=== PATIENT | female | born 1975 | race Caucasian/White ===

== ENCOUNTER 2020-04-19 15:21 | Outpatient (CLI) | payer OTHER, SELFPAY ==
--- NOTE | 2020-04-19 15:24 | ECG_ITS ---
Measurements Intervals [place] Rate: 84 P: 63 ME: 176 QRS: 18 QRSD: 120 T: 26 QT: 345 QTc: 409 Interpretive Statements SINUS RHYTHM INTRAVENTRICULAR CONDUCTION DELAY BORDERLINE ECG Electronically Signed On 04-19-2020 16:06:01 VEHICLE TECHNICIAN by Eliseo Glover D.O.
== END 2020-04-19 15:22 | disposition home or self-care (01) ==
PROVIDERS: PCP Family Medicine Sports Medicine; Visit Provider Surgery
DX: Z01.818 Encounter for other preprocedural examination (principal); Z87.891 Personal history of nicotine dependence
CPT/HCPCS: 93005

== ENCOUNTER 2020-04-21 00:42 | Outpatient (CLI) | payer OTHER, SELFPAY ==
[2020-04-21 18:38] LABS: SARS-CoV-2 RNA PCR Negative
== END 2020-04-21 00:43 | disposition home or self-care (01) ==
LOC: ANHCOVIDDT 00:42
PROVIDERS: PCP Family Medicine Sports Medicine; Visit Provider Surgery
DX: Z01.818 Encounter for other preprocedural examination (principal); Z20.828 Contact with and (suspected) exposure to other viral communicable diseases
CPT/HCPCS: C9803; U0003

== ENCOUNTER 2020-04-24 01:57 | Day surgery (SDC) | payer OTHER, SELFPAY ==
[2020-04-19 09:38] VITALS: BMI 27.1
[2020-04-24 10:12] VITALS: BP 122/66; PULSE 81; RESP 16; TEMP 36.9; O2SAT 100
--- NOTE | 2020-04-24 10:43 | WPDANESEPPF ---
Anes - Initial Pre Proc Eval Procedure: Operation Date: 04/24/20 12:30 Proposed Procedures p Excision Right Back Mass, Excision Left Thigh Mass - Alee Palmer MD Date/Time: 04/24/20 10:43 Surgeon: Alee Palmer MD Pre Op Diagnosis: Subq massXtwo, left thigh and right back Patient Data Age: 45 Gender: F Height: 1.6 m Weight: 69.85 kg Last Vital Signs Temp 36.9 C 04/24/20 10:12 Pulse 81 04/24/20 10:12 Resp 16 04/24/20 10:12 BP 122/66 04/24/20 10:12 Pulse Ox 100 04/24/20 10:12 Allergies Allergy/AdvReac Type Severity Reaction Status Date / Time sumatriptan [From Imitrex] Allergy Unknown Dyspnea / Verified 04/24/20 10:26 SOB hydrocodone [From Vicodin] Allergy Hives Verified 04/24/20 10:27 Home Medications Medication Instructions Recorded Confirmed Type duloxetine 20 mg capsule,delayed 60 mg PO QAM 04/12/20 04/19/20 History release esomeprazole magnesium 20 mg 40 mg PO DAILY 04/12/20 04/19/20 History capsule,delayed release gabapentin 300 mg capsule 1,200 mg PO BID 04/12/20 04/19/20 History modafinil 100 mg tablet 100 mg PO BID 04/12/20 04/19/20 History rizatriptan 10 mg tablet 10 mg PO PRN PRN 04/12/20 04/19/20 History ascorbic acid (vitamin C) 1 g PO DAILY 04/19/20 04/19/20 History Patient hx anesthesia problems: post op nausea/vomiting Family hx anesthesia problems: none PMFSH Past Medical History Medical History (Updated 04/20/20 @ 08:12 by Long Kwong DO) Anxiety GERD (gastroesophageal reflux disease) High cholesterol Hypoglycemia IBS (irritable bowel syndrome) CHARLIE (obstructive sleep apnea) CPAP Surgical History Surgical History H/O wrist surgery History of breast surgery History of cholecystectomy History of elbow surgery History of eye surgery History of shoulder surgery History of sinus surgery Family History Family History Unknown Breast cancer Carcinoma of colon Diabetes mellitus Grandparent Acute myocardial infarction Social History Social History Smoking packs per day: 1 Smoking cigarettes per day: 20.0 Years smoked: 23 Smoking pack-years: 23.00 Smoking status: Former smoker Tobacco type: cigarettes Smoking end date: 04/21/11 Alcohol intake: current Drinks per week: 1 Living arrangements: with family 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 Questions were solicited and answers provided to the satisfaction of the patient/family/POA.
[2020-04-24] MEDS: LACTATED RINGERS 1,000 ML 30 ML IV CONT ×2 (11:15→13:12)
--- NOTE | 2020-04-24 12:02 | WPDHPUPDATE1 ---
History and Physical Update Update Date/Time: 04/24/20 12:02 History and Physical has been reviewed, including an updated exam of the patient. There are NO changes in the patient's condition. Risks, benefits, and alternatives have been discussed and questions answered. Patient agrees to proceed with procedure.
[2020-04-24] MEDS: ceFAZolin 2 GM/D5W 50 ML 2 GM/50 ML BAG IVPB (12:18)
[2020-04-24] MEDS: LIDO 1%/EPINEPHRINE 1:100,000 50 ML VIAL INFILTRATE (12:29)
[2020-04-24 12:50] VITALS: BP 119/57; PULSE 115; RESP 12; O2SAT 98
--- NOTE | 2020-04-24 13:06 | PM.PROC ---
Procedure Note - Detailed Date of procedure: 04/24/20 Pre-op diagnosis: Subq massXtwo, left thigh and right back Post-op diagnosis: same Procedure performed: excisional biopsy subcutaneous mass on R middle back and L lower lateral thigh Description of procedure: The patient was taken to the operating room and placed in the supine position. After adequate induction of mac anesthesia the patient was prepped and draped in the normal sterile fashion. A time-out was then done to verify the patient's identity, as well as procedure being performed. I began by localizing the area over both masses. I then made an incision over the mass in the right middle back. This carried through the dermis and into the subcutaneous tissue. The mass was noted to be located underneath the fascial layer, however not into the muscle. Was able to excise this mass in full. 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 The dimensions of this mass approximately 3 by 3 cm. Once removed it was sent to pathology for further review. I then copiously irrigated the cavity and further localized the area. Then closed the subcutaneous tissue with 3 0 Vicryl suture and the skin was closed with 4 O Monocryl subcuticular suture. Dermabond was then placed on the wound. I then made an incision over the area in the left lower lateral thigh. Again the incision was carried through the dermis into the subcutaneous tissue. This mass was noted to be more cystic in nature and measured approximately 2 x 2 cm. It was excised in full and sent to pathology for further review. I again copiously irrigated the cavity and further localized the area. I closed this with 4 Monocryl subcuticular suture and again Dermabond was placed on the wound. The patient tolerated these procedures well and was alert and awake in the operating room postoperatively. She will be sent to the recovery room in stable condition. Anesthesia: MAC and local Surgeon: Alee Palmer MD Estimated blood loss (mL): 5 Drains: No Packing: No Pathology: yes Complications: No immediate complications Condition: stable Disposition: PACU Findings: right mid back mass and left lateral thigh mass
[2020-04-24 13:20] VITALS: BP 111/65; PULSE 102; RESP 14
== END 2020-04-24 13:52 | disposition home or self-care (01) ==
PROVIDERS: PCP Family Medicine Sports Medicine; Visit Provider Surgery
PROC: (CPT 27337; principal; 2020-04-24 12:00)
DX: D17.1 Benign lipomatous neoplasm of skin and subcutaneous tissue of trunk (principal); D17.24 Benign lipomatous neoplasm of skin and subcutaneous tissue of left leg; E78.00 Pure hypercholesterolemia, unspecified; G47.33 Obstructive sleep apnea (adult) (pediatric); K21.9 Gastro-esophageal reflux disease without esophagitis; F41.9 Anxiety disorder, unspecified; K58.9 Irritable bowel syndrome, unspecified; Z87.891 Personal history of nicotine dependence
CPT/HCPCS: 27337; 21931; 88304; 93005; C9803; J0690; J1100; J2250; J2370; J2405; J2704; J3010; J7120; U0003

== ENCOUNTER 2021-07-10 00:09 | Day surgery (SDC) | payer OTHER, SELFPAY ==
[2021-07-02 13:25] VITALS: BMI 27.3
--- NOTE | 2021-07-02 13:31 | PC.NURSE ---
Report to the Outpatient Waiting Room, entrance under the green pavilion located off [facility], at time _0900__ on date 07/10/21__. OR Time: ____1100__. - You and your visitor will be asked a series of questions to screen for COVID 19 for your protection. - A mask is required within the hospital. Preoperative COVID Testing Requirements: No COVID Test needed if: (proof is required; if not received patient will have Rapid Test prior to entry) - Patient has received COVID Vaccine at least 14 days prior to procedure date or - Patient has positive COVID test result within last 90 days of surgery date. COVID Test needed if above criteria is not met If not COVID vaccinated a COVID test must be conducted within 72 hours of surgery and patient is asked to isolate self from time of testing until procedure. You will go to the [facility] for your COVID testing. The [facility] is located at the corner of [address] [facility]. You will only be called if COVID results are positive and your surgeon may reschedule your elective surgery date. Patients may have clear liquids (water, carbonated beverages, clear teas, apple juice) until 3 hours prior to surgery with a maximum of 20 ounces. - No food from midnight until time of surgery - Infants may have breast milk until 4 hours before surgery, formula 6 hours prior to surgery. - Children will be allowed to drink immediately following surgery. If applicable, please bring a bottle or sippy cup to assist with drinking. Juice, water, soda, and popsicles are readily available. For infants on formula, please bring formula the day of surgery. Pacifiers are allowed. Take the following medications with a SIP of water the morning of surgery: ____DULOXETINE,ESCITALOPRAM,GABAPENTINE, NEXIUM, METHYLPHENIDATE_ Medications to discontinue per physician ____NONE Date to take last dose N/A Please no make-up, nail tajik, hairspray, perfume, deodorant, or body powder the day of surgery. No jewelry (including any body piercings) or valuables the day of surgery, leave them at home. Please take a shower or bath the night before, or the morning of, surgery with an antibacterial soap. Wear comfortable, loose fitting clothing. Children are encouraged to wear pajamas. - Jewelry must be removed prior to entering the operating room. Rings and piercings that are not removed may be cut off. - The hospital will not accept responsibility for valuables. - Please leave all valuables, including medications, at home the day of surgery. If you are going home after surgery, a licensed bus driver/monitor must drive you home. - NO public transportation without another adult. - We recommend that an adult stay with you for 24 hours following discharge. - We also recommend that you do not drive, make important decision, drink alcoholic beverages, or take any drugs that were not prescribed by your health care provider for at least 24 hours after your discharge time. For Pediatric surgeries, we recommend two adults accompany the child home (only one inside the building at this time). One visitor will be allowed to accompany the patient into the hospital. Patients visitor will be instructed to remain with patient at all times or leave the building. We will allow the visitor to come back to the postoperative area when patient is ready. Follow any additional instructions given to you from your surgeon. Telephone instructions given to _PATIENT__and asked if any additional questions and then verbalized understanding. Patient advised to call surgeon office or pre surgery nurse liaison [phone] if any additional questions.
--- NOTE | 2021-07-09 15:27 | WPDANESEPPF ---
Anes - Initial Pre Proc Eval Procedure: Operation Date: 07/10/21 11:00 Proposed Procedures p Hysteroscopy with Intrauterine Device Removal - Sravanthi Topete MD Date/Time: 07/09/21 15:27 Surgeon: Sravanthi Topete MD Pre Op Diagnosis: removal of iud Patient Data Age: 46 Gender: F Height: 1.6 m Weight: 70 kg Allergies Allergy/AdvReac Type Severity Reaction Status Date / Time hydrocodone [From Vicodin] Allergy Severe Hives Verified 07/10/21 09:19 sumatriptan [From Imitrex] Allergy Severe Dyspnea / Verified 07/10/21 09:19 SOB Home Medications Medication Instructions Recorded Confirmed Type duloxetine 20 mg capsule,delayed 60 mg PO QAM 04/12/20 07/10/21 History release esomeprazole magnesium 20 mg 40 mg PO DAILY 04/12/20 07/10/21 History capsule,delayed release gabapentin 300 mg capsule 1,200 mg PO BID 04/12/20 07/10/21 History modafinil 100 mg tablet 100 mg PO BID 04/12/20 07/10/21 History rizatriptan 10 mg tablet 10 mg PO PRN PRN 04/12/20 07/02/21 History ascorbic acid (vitamin C) 1 g PO DAILY 04/19/20 07/02/21 History escitalopram oxalate 20 mg PO HS 07/02/21 07/10/21 History methylphenidate HCl 10 mg PO DAILY 07/02/21 07/10/21 History methylphenidate HCl 20 mg PO DIRECTED 07/02/21 07/10/21 History triamcinolone acetonide 1 applic TOPICAL 07/02/21 History Patient hx anesthesia problems: post op nausea/vomiting Family hx anesthesia problems: none Results Review: All pre-operative results and documents have been reviewed as part of the pre-operative evaluation. [facility] Past Medical History Medical History Anxiety GERD (gastroesophageal reflux disease) High cholesterol Hypoglycemia IBS (irritable bowel syndrome) CHARLIE (obstructive sleep apnea) CPAP Surgical History Surgical History H/O excision of mass lipoma removal from mid back H/O wrist surgery History of breast surgery History of cholecystectomy History of elbow surgery History of eye surgery History of shoulder surgery History of sinus surgery Family History Family History Unknown Breast cancer Carcinoma of colon Diabetes mellitus Grandparent Acute myocardial infarction Social History Social History Smoking packs per day: 1.5 Smoking cigarettes per day: 30.0 Years smoked: 24 Smoking pack-years: 36.00 Smoking status: Former smoker Tobacco type: cigarettes Smoking end date: 04/21/11 Additional smoking assessment comments: STOPPED IN 2014 Alcohol intake: current Drinks per week: 2 Alcohol use details: social Living arrangements: with family 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 Informed Consent: The patient's anesthetic plan and its attendant risks and benefits were discussed with the patient/family/POA. Questions were solicited and answers provided to the satisfaction of the patient/family/POA.
[2021-07-10] MEDS: ACETAMINOPHEN 500 MG TABLET 1000 MG PO (09:34)
[2021-07-10] MEDS: LACTATED RINGERS 1,000 ML 30 ML IV CONT (09:47)
[2021-07-10 09:49] VITALS: BP 125/73; PULSE 80; RESP 16; TEMP 37.1; O2SAT 100
--- NOTE | 2021-07-10 09:55 | PM.IMHP ---
H&P: HPI History of Present Illness Date/Time: 07/10/21 09:55 This patient is 46-year-old female with malpositioned IUD. We have agreed to perform hysteroscopic IUD removal and replacement. She understands the surgery as risk. She understands that injuries may occur that result in hospitalization, more surgery, and severe illness. She has completed the informed consent process. She understands the risk of hemorrhage and infection. She denies any nausea, vomiting, fever, chills. She denies any chest pain or shortness of breath. Chief Complaint: Malpositioned IUD Review of Systems Review of Systems: All systems reviewed & are unremarkable except as noted in HPI and below Constitutional: Constitutional: Denies chills, Denies fatigue, Denies fever(s) and Denies weakness Eyes: Eyes: Denies blurry vision, Denies change in vision, Denies loss of peripheral vision, Denies loss of vision, Denies other visual disturbances and Denies eye pain ENT: Denies vertigo, Denies dizziness, Denies hearing loss, Denies mouth pain, Denies nasal obstruction, Denies neck mass and Denies neck pain Cardiovascular: Cardiovascular: Denies chest pain, Denies diaphoresis, Denies syncope, Denies leg edema and Denies dyspnea Respiratory: Respiratory: Denies chest congestion, Denies cough, Denies hemoptysis, Denies dyspnea and Denies wheezing Gastrointestinal: Gastrointestinal: Denies abdominal pain, Denies constipation, Denies diarrhea, Denies nausea and Denies vomiting Genitourinary: Genitourinary: Denies hematuria, Denies change in libido, Denies nocturia, Denies genital lesions, Denies flank pain and Denies urinary urgency Musculoskeletal: Musculoskeletal: Denies abnormal gait, Denies back pain, Denies myalgias, Denies arthralgias, Denies joint swelling, Denies muscle weakness and Denies neck pain Integumentary/Breasts: Skin/Breast: Denies swelling, Denies breast pain, Denies breast mass, Denies dry skin, Denies nipple discharge, Denies unusual bruising and Denies jaundice Neurologic: Denies Neuro-related abnormal movements, Denies Abnormal speech present, Denies abnormal gait, Denies behavioral changes, Denies confusion, Denies vertigo, Denies dizziness, Denies syncope, Denies loss of vision, Denies memory loss, Denies convulsions and Denies weakness Psychiatric: Psychiatric: Denies abnormal sleep pattern, Denies behavioral changes, Denies change in libido, Denies confusion, Denies depression, Denies anhedonia and Denies memory loss Endocrine: Endocrine: Reports no additional endocrine complaints, Denies change in libido and Denies fatigue Hematologic/Lymphatic: Hematologic/Lymphatic: Reports no additional hematologic/lymphatic complaints Allergic/Immunologic: Allergic/Immunologic: Reports no additional allergic/immunologic complaints and Denies wheezing PMFSH Past Medical History Medical History Anxiety GERD (gastroesophageal reflux disease) High cholesterol Hypoglycemia IBS (irritable bowel syndrome) CHARLIE (obstructive sleep apnea) CPAP Surgical History Surgical History H/O excision of mass lipoma removal from mid back H/O wrist surgery History of breast surgery History of cholecystectomy History of elbow surgery History of eye surgery History of shoulder surgery History of sinus surgery Family History Family History Unknown Breast cancer Carcinoma of colon Diabetes mellitus Grandparent Acute myocardial infarction Social History Social History Smoking packs per day: 1.5 Smoking cigarettes per day: 30.0 Years smoked: 24 Smoking pack-years: 36.00 Smoking status: Former smoker Tobacco type: cigarettes Smoking end date: 04/21/11 Additional smoking assessment comments: STOPPED IN 2014 Alcohol int
[2021-07-10] MEDS: SCOPOLAMINE 1.5 MG PATCH TRANSDERM (10:04)
--- NOTE | 2021-07-10 10:04 | WPDHPUPDATE1 ---
History and Physical Update Update Date/Time: 07/10/21 10:04 History and Physical has been reviewed, including an updated exam of the patient. There are NO changes in the patient's condition. Risks, benefits, and alternatives have been discussed and questions answered. Patient agrees to proceed with procedure.
--- NOTE | 2021-07-10 11:36 | W.PM.PROC2 ---
Procedure Note - Detailed Date of Procedure 07/10/21 Pre-op Diagnosis removal of iud, and IUD placement Post-op Diagnosis Same Procedure Performed Hysteroscopic IUD removal and IUD placement Surgeon Sravanthi Topete MD Indications Contraceptive care management Findings Narrow intrauterine cavity, normal appearing vulva vagina cervix. Description of Procedure The patient was taken the operating room. She was prepped and draped in the dorsal lithotomy position after induction of MAC anesthesia. Speculum was placed in the vagina and the cervix grasped with a tenaculum. The scope was introduced into the intracervical canal. The hysteroscope was then moved into the intrauterine cavity and the position of the IUD was observed. It was then grasped with a hemostat removed. The IUD was then inserted in the usual fashion. The applicator was inserted to the top of the intrauterine cavity and the IUD was released. It was slowly withdrawn and then the string was cut. The tenaculum and the speculum removed. The patient tolerated the procedure well. She was taken recovery room in stable condition. Sponge lap and needle counts were correct x2. Estimated Blood Loss 5 Drains No Packing No Pathology None sent Complications No immediate complications Condition Stable Disposition Same day
[2021-07-10 11:38] VITALS: BP 129/87; PULSE 86; RESP 14; O2SAT 93
[2021-07-10 12:00] VITALS: BP 129/87; PULSE 86; RESP 20
[2021-07-10] MEDS: oxyCODONE HCL (*CRX) 5 MG TAB IR PO (12:23)
[2021-07-10 12:30] VITALS: BP 123/71; PULSE 71; RESP 20; O2SAT 72
[2021-07-10 12:50] VITALS: BP 130/80; PULSE 70; RESP 20
== END 2021-07-10 13:00 | disposition home or self-care (01) ==
PROVIDERS: PCP Family Medicine Sports Medicine; Visit Provider Obstetrics & Gynecology
PROC: 0U5B8ZZ Destruction of Endometrium, Via Natural or Artificial Opening Endoscopic (ICD-10-PCS; CPT 58563; principal; 2021-07-10 11:00)
DX: T83.32XA Displacement of intrauterine contraceptive device, initial encounter (principal); Y84.8 Other medical procedures as the cause of abnormal reaction of the patient, or of later complication, without mention of misadventure at the time of the procedure; G47.33 Obstructive sleep apnea (adult) (pediatric); E78.00 Pure hypercholesterolemia, unspecified; K21.9 Gastro-esophageal reflux disease without esophagitis; K58.9 Irritable bowel syndrome, unspecified; F41.9 Anxiety disorder, unspecified; Z87.891 Personal history of nicotine dependence
CPT/HCPCS: 58562; 58300; A9270; J2001; J2250; J2405; J2704; J3010; J7030; J7120

== ENCOUNTER 2023-01-13 19:12 | Emergency (ER) | payer OTHER, SELFPAY ==
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
[2023-01-13 19:14] VITALS: BP 118/53; PULSE 76; RESP 16; TEMP 37.2; O2SAT 100
[2023-01-13 21:27] VITALS: BP 112/66; PULSE 69; RESP 16; TEMP 37.3; O2SAT 100
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
[2023-01-14] MEDS: ACETAMINOPHEN 500 MG TABLET 1000 MG PO (00:16)
[2023-01-14 02:51] VITALS: BP 114/68; PULSE 66; RESP 15; O2SAT 100
== END 2023-01-14 02:52 | disposition home or self-care (01) ==
PROVIDERS: Emergency Provider Physician Assistant; PCP Family Medicine Sports Medicine
DX: S16.1XXA Strain of muscle, fascia and tendon at neck level, initial encounter (principal); S29.012A Strain of muscle and tendon of back wall of thorax, initial encounter; F41.9 Anxiety disorder, unspecified; K21.9 Gastro-esophageal reflux disease without esophagitis; G47.30 Sleep apnea, unspecified; V59.40XA Driver of pick-up truck or van injured in collision with unspecified motor vehicles in traffic accident, initial encounter
CPT/HCPCS: 71046; 72050; 72072; 72100; 72125; 99284; A9270; L0140

== ENCOUNTER 2023-09-24 00:49 | Day surgery (SDC) | payer OTHER, SELFPAY ==
--- NOTE | 2023-09-16 13:36 | SUR.PREOP ---
Report to the Outpatient Waiting Room, entrance under the green pavilion located off [facility], at time 0930 on date 09/24/23. Planned Procedure Time: 1130. Time changes happen often and if your time is changed the preop area will call you the afternoon before. - You and your visitor will be asked to self-screen and do not enter if you have any COVID symptoms. - A mask is optional within the hospital at this time. Patients may have clear liquids (water, carbonated beverages, clear teas, apple juice) until 3 hours prior to surgery with a maximum of 20 ounces. - No food from midnight until time of surgery 20 OUNCES BEFORE 0830 AM - Infants may have breast milk until 4 hours before surgery, infant formula 6 hours prior to surgery. - Children will be allowed to drink immediately following surgery. If applicable, please bring a bottle or sippy cup to assist with drinking. Juice, water, soda, and popsicles are readily available. For infants on formula, please bring formula the day of surgery. Pacifiers are allowed. Take the following medications with a SIP of water the morning of surgery: GABAPENTIN, DULOXETINE DO NOT STOP ANY OF YOUR OTHER PRESCRIPTION MEDICATIONS PRIOR TO SURGERY ?EXCEPT THE FOLLOWING Medications to discontinue per physician ___FISH OIL 3 DAYS PRIOR, HOLD MODAFINIL MORNING OF PROCEDURE Date to take last dose Please no make-up, nail spanish, hairspray, perfume, deodorant, or body powder the day of surgery. No jewelry (including any body piercings) or valuables the day of surgery, leave them at home. Please take a shower or bath the night before, or the morning of, surgery with an antibacterial soap. Wear comfortable, loose fitting clothing. Children are encouraged to wear pajamas. - Jewelry must be removed prior to entering the operating room. Rings and piercings that are not removed may be cut off. - The hospital will not accept responsibility for valuables. - Please leave all valuables, including medications, at home the day of surgery. If you are going home after surgery, a licensed transportation driver must drive you home. - NO public transportation without another adult if you receive anesthesia. - We recommend that an adult stay with you for 24 hours following discharge. - We also recommend that you do not drive, make important decision, drink alcoholic beverages, or take any drugs that were not prescribed by your health care provider for at least 24 hours after your discharge time. For Pediatric surgeries, we recommend two adults accompany the child home. Follow any additional instructions given to you from your surgeon. If you or anyone in your household have experienced Covid symptoms in the past week, please notify your surgeon or the nurse liaison at the phone number below for possible testing. Telephone instructions given to ___PATIENT___and asked if any additional questions and then verbalized understanding. Patient advised to call surgeon office or pre surgery nurse liaison [phone] if any additional questions.
[2023-09-24] VITALS (8 sets, daily range): BP systolic 103–130; BP diastolic 63–72; PULSE 74–87; RESP 13–18; TEMP 37–37.2; O2SAT 94–100
[2023-09-24] MEDS: LACTATED RINGERS 1,000 ML 30 ML IV CONT ×2 (10:50→14:05)
--- NOTE | 2023-09-24 11:26 | WPDANESEPPF ---
Anes - Initial Pre Proc Eval Procedure: Operation Date: 09/24/23 12:00 Proposed Procedures p Diagnostic Laparoscopy with Bilateral Ovarian Cystectomy - Ok Topete MD Date/Time: 09/24/23 11:26 Surgeon: Ok Topete MD Pre Op Diagnosis: Cyst Bilateral Ovaries Patient Data Age: 48 Gender: F Height: 1.6 m Weight: 51.6 kg Last Vital Signs Temp 37.2 C 09/24/23 10:32 Pulse 74 09/24/23 10:32 Resp 18 09/24/23 10:32 BP 104/65 09/24/23 10:32 Pulse Ox 100 09/24/23 10:32 O2 Del Method Room Air 09/24/23 10:32 Allergies Allergy/AdvReac Type Severity Reaction Status Date / Time hydrocodone [From Vicodin] Allergy Severe Hives Verified 09/24/23 10:27 sumatriptan [From Imitrex] Allergy Severe Dyspnea / Verified 09/24/23 10:27 SOB Home Medications Medication Instructions Recorded Confirmed Type duloxetine 20 mg capsule,delayed 60 mg PO QAM 04/12/20 09/24/23 History release (Cymbalta) esomeprazole magnesium 20 mg 40 mg PO HS 04/12/20 09/24/23 History capsule,delayed release (Nexium) gabapentin 300 mg capsule 1,200 mg PO BID 04/12/20 09/24/23 History modafinil 100 mg tablet (Provigil) 100 mg PO BID 04/12/20 09/24/23 History rizatriptan 10 mg tablet (Maxalt) 10 mg PO PRN PRN Migraine Headache 04/12/20 09/24/23 History escitalopram oxalate 20 mg tablet 20 mg PO HS 07/02/21 09/24/23 History omega-3 fatty acids-vitamin E 1 cap PO DAILY 09/16/23 09/24/23 History 1,000 mg capsule solriamfetol 150 mg tablet (Sunosi) 150 mg PO DAILY 09/16/23 09/24/23 History Patient hx anesthesia problems: none Family hx anesthesia problems: none Results Review: All pre-operative results and documents have been reviewed as part of the pre-operative evaluation. [facility] Past Medical History Medical History Anxiety GERD (gastroesophageal reflux disease) High cholesterol Hypoglycemia IBS (irritable bowel syndrome) CHARLIE (obstructive sleep apnea) CPAP Surgical History Surgical History H/O excision of mass lipoma removal from mid back H/O wrist surgery History of breast surgery History of cholecystectomy History of elbow surgery History of eye surgery History of shoulder surgery History of sinus surgery Family History Family History Unknown Breast cancer Carcinoma of colon Diabetes mellitus Grandparent Acute myocardial infarction Social History Social History Smoking packs per day: 1.5 Smoking cigarettes per day: 30.0 Years smoked: 24 Smoking pack-years: 36.00 Smoking status: Former smoker Tobacco type: cigarettes Smoking end date: 04/21/11 Additional smoking assessment comments: STOPPED IN 2014 Alcohol intake: current Drinks per week: 2 Alcohol use details: social Living arrangements: with family Occupation/Education: occupation Additional occupation/education comments: Director Loan Spiritual care concerns: No Anes - Eval Final PreProcedure Day of Procedure 09/24/23 11:26 Patient weight: normal Heart: regular rate and rhythm Lungs: clear to auscultation Airway: Mallampati scale class II Neurological: alert and oriented Last oral intake: >/= 8 hours ASA classification: III Emergent: no Anesthetic plan: proceed Anesthesia type and monitoring: general ETT and standard monitoring Results Review: All pre-operative results and documents have been reviewed as part of the pre-operative evaluation. Informed Consent: The patient's anesthetic plan and its attendant risks and benefits were discussed with the patient/family/POA. Questions were solicited and answers provided to the satisfaction of the patient/family/POA.
[2023-09-24] MEDS: SCOPOLAMINE 1 MG PATCH 1 PATCH TRANSDERM (11:36)
[2023-09-24] MEDS: KETOROLAC 15 MG/ML VIAL (*BKC) IV PUSH (11:43)
[2023-09-24] MEDS: ACETAMINOPHEN 500 MG TABLET 1000 MG PO (11:43)
--- NOTE | 2023-09-24 12:41 | PM.IMHP ---
H&P: HPI History of Present Illness Date/Time: 09/24/23 12:41 Chief Complaint: pain with intercourse Narrative: this patient is a 48-year-old female with dyspareunia and bilateral ovarian cysts. We have agreed to perform diagnostic laparoscopy and bilateral ovarian cystectomy. The patient understands the details of the procedure. The procedure has been explained in detail. She understands the risks. She understands that injuries may occur that result in hospitalization, more surgery, and severe illness. She understands risk of hemorrhage and infection. She denies any chest pain or shortness of breath. She denies any nausea, vomiting, fever, chills. Review of Systems Review of Systems: All systems reviewed & are unremarkable except as noted in HPI and below Constitutional: Constitutional: Denies chills, Denies fatigue, Denies fever(s) and Denies weakness Eyes: Eyes: Denies blurry vision, Denies change in vision, Denies loss of peripheral vision, Denies loss of vision, Denies other visual disturbances and Denies eye pain ENT: Denies vertigo, Denies dizziness, Denies hearing loss, Denies mouth pain, Denies nasal obstruction, Denies neck mass and Denies neck pain Cardiovascular: Cardiovascular: Denies chest pain, Denies diaphoresis, Denies syncope, Denies leg edema and Denies dyspnea Respiratory: Respiratory: Denies chest congestion, Denies cough, Denies hemoptysis, Denies dyspnea and Denies wheezing Gastrointestinal: Gastrointestinal: Denies abdominal pain, Denies constipation, Denies diarrhea, Denies nausea and Denies vomiting Genitourinary: Genitourinary: Denies hematuria, Denies change in libido, Denies nocturia, Denies genital lesions, Denies flank pain and Denies urinary urgency Musculoskeletal: Musculoskeletal: Denies abnormal gait, Denies back pain, Denies myalgias, Denies arthralgias, Denies joint swelling, Denies muscle weakness and Denies neck pain Integumentary/Breasts: Skin/Breast: Denies swelling, Denies breast pain, Denies breast mass, Denies dry skin, Denies nipple discharge, Denies unusual bruising and Denies jaundice Neurologic: Denies Neuro-related abnormal movements, Denies Abnormal speech present, Denies abnormal gait, Denies behavioral changes, Denies confusion, Denies vertigo, Denies dizziness, Denies syncope, Denies loss of vision, Denies memory loss, Denies convulsions and Denies weakness Psychiatric: Psychiatric: Denies abnormal sleep pattern, Denies behavioral changes, Denies change in libido, Denies confusion, Denies depression, Denies anhedonia and Denies memory loss Endocrine: Endocrine: Reports no additional endocrine complaints, Denies change in libido and Denies fatigue Hematologic/Lymphatic: Hematologic/Lymphatic: Reports no additional hematologic/lymphatic complaints Allergic/Immunologic: Allergic/Immunologic: Reports no additional allergic/immunologic complaints and Denies wheezing PMFSH Past Medical History Medical History Anxiety GERD (gastroesophageal reflux disease) High cholesterol Hypoglycemia IBS (irritable bowel syndrome) CHARLIE (obstructive sleep apnea) CPAP Surgical History Surgical History H/O excision of mass lipoma removal from mid back H/O wrist surgery History of breast surgery History of cholecystectomy History of elbow surgery History of eye surgery History of shoulder surgery History of sinus surgery Family History Family History Unknown Breast cancer Carcinoma of colon Diabetes mellitus Grandparent Acute myocardial infarction Social History Social History Smoking packs per day: 1.5 Smoking cigarettes per day: 30.0 Years smoked: 24 Smoking pack-years: 36.00 Smoking status: Former smoker Tobacco type: cigarettes Smoking end date: 0
--- NOTE | 2023-09-24 12:45 | WPDHPUPDATE1 ---
History and Physical Update Update Date/Time: 09/24/23 12:45 History and Physical has been reviewed, including an updated exam of the patient. There are NO changes in the patient's condition. Risks, benefits, and alternatives have been discussed and questions answered. Patient agrees to proceed with procedure.
--- NOTE | 2023-09-24 14:11 | W.PM.PROC2 ---
Procedure Note - Detailed Date of Procedure 09/24/23 Pre-op Diagnosis Cyst Bilateral Ovaries Post-op Diagnosis Same Procedure Performed Diagnostic laparoscopy Surgeon Ok Topete MD Anesthesia General Indications Pelvic pain Findings Normal with the exception of a small semi pedunculated fibroid of the anterior fundus. 1.5 cm fibroid Description of Procedure The patient was taken to the operating room. She was prepped and draped in the dorsal lithotomy position after induction general anesthesia. A 5 mm incision was made with a scalpel on the abdominal skin in the left upper quadrant of the abdomen. A 5 mm trocar was inserted into the intra-abdominal cavity under direct visualization the scope. In the same fashion a 5 mm left lower quadrant trocar was inserted and a 5 mm infraumbilical trocar was inserted. the bowel was moved out of the pelvis. A thorough examination was performed, visual examination At both macro and fine magnification. The pelvis was irrigated. The pneumoperitoneum was reduced. The trocars were removed. Skin was closed with subcuticular 4 micro. The patient's incisions were covered with Dermabond. She was taken recovery room in stable condition. Sponge lap and needle counts were correct x2. Estimated Blood Loss 5 Complications No immediate complications Condition Stable Disposition Same day
[2023-09-24] MEDS: ONDANSETRON INJ 4 MG/2 ML VIAL IV PUSH (14:15)
--- NOTE | 2023-09-24 14:28 | SUR.PHASEI ---
1428: Simple mask removed.
== END 2023-09-24 15:44 | disposition home or self-care (01) ==
PROVIDERS: PCP Family Medicine; Visit Provider Obstetrics & Gynecology
PROC: (CPT 49320; principal; 2023-09-24 12:00)
DX: D25.9 Leiomyoma of uterus, unspecified (principal); G47.33 Obstructive sleep apnea (adult) (pediatric); E78.00 Pure hypercholesterolemia, unspecified; K21.9 Gastro-esophageal reflux disease without esophagitis; F41.9 Anxiety disorder, unspecified; Z87.891 Personal history of nicotine dependence
CPT/HCPCS: 49320; A9270; J1100; J1170; J1885; J2250; J2405; J2704; J3010; J7030; J7120

== ENCOUNTER 2023-12-03 05:54 | Day surgery (SDC) | payer OTHER, SELFPAY ==
[2023-11-12 06:42] VITALS: BMI 20.4
[2023-11-26 09:13] VITALS: BMI 20.4
[2023-12-03 06:37] VITALS: BMI 21.3
--- NOTE | 2023-12-03 07:12 | WPDANESEPPF ---
Anes - Initial Pre Proc Eval Procedure: Operation Date: 12/03/23 07:30 Proposed Procedures p Screening Colonoscopy - Bony Roth MD Date/Time: 12/03/23 07:12 Surgeon: Bony Roth MD Pre Op Diagnosis: Neoplasm screening Patient Data Age: 48 Gender: F Height: 1.6 m Weight: 54.6 kg Allergies Allergy/AdvReac Type Severity Reaction Status Date / Time hydrocodone [From Vicodin] Allergy Severe Hives Verified 12/03/23 06:36 sumatriptan [From Imitrex] Allergy Severe Dyspnea / Verified 12/03/23 06:36 SOB Home Medications Medication Instructions Recorded Confirmed Type esomeprazole magnesium 20 mg 40 mg PO HS 04/12/20 11/26/23 History capsule,delayed release (Nexium) gabapentin 300 mg capsule 600 mg PO BID 04/12/20 12/03/23 History modafinil 100 mg tablet (Provigil) 200 mg PO BID 04/12/20 11/26/23 History rizatriptan 10 mg tablet (Maxalt) 10 mg PO PRN PRN Migraine Headache 04/12/20 11/26/23 History escitalopram oxalate 20 mg tablet 20 mg PO HS 07/02/21 11/26/23 History omega-3 fatty acids-vitamin E 1 cap PO DAILY 09/16/23 11/26/23 History 1,000 mg capsule solriamfetol 150 mg tablet (Sunosi) 150 mg PO DAILY 09/16/23 11/26/23 History duloxetine 60 mg capsule,delayed 60 mg PO DAILY 11/26/23 12/03/23 History release sodium,potassium,mag sulfates 17.5 See Rx Instructions .Route 11/26/23 Rx gram-3.13 gram-1.6 gram oral soln .COMPLEX #354 mL (Suprep Bowel Prep Kit) tirzepatide 7.5 mg/0.5 mL 7.5 mg subcut WEEKLY 11/26/23 12/03/23 History subcutaneous pen injector (Mounjaro) Patient hx anesthesia problems: none Family hx anesthesia problems: none Results Review: All pre-operative results and documents have been reviewed as part of the pre-operative evaluation. [facility] Past Medical History Medical History Anxiety GERD (gastroesophageal reflux disease) High cholesterol Hypoglycemia IBS (irritable bowel syndrome) CHARLIE (obstructive sleep apnea) CPAP Surgical History Surgical History H/O excision of mass lipoma removal from mid back H/O wrist surgery History of breast surgery History of cholecystectomy History of elbow surgery History of eye surgery History of shoulder surgery History of sinus surgery Family History Family History Unknown Breast cancer Carcinoma of colon Diabetes mellitus Grandparent Acute myocardial infarction Social History Social History Smoking packs per day: 1.5 Smoking cigarettes per day: 30.0 Years smoked: 24 Smoking pack-years: 36.00 Smoking status: Former smoker Tobacco type: cigarettes Smoking end date: 04/21/11 Additional smoking assessment comments: STOPPED IN 2014 Alcohol intake: current Drinks per week: 2 Alcohol use details: 2 per month Substance use type: does not use Living arrangements: with family Occupation/Education: occupation 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 Informed Consent: The patient's anesthetic plan and its attendant risks and benefits were discussed with the patient/family/POA. Questions were solicited and answers provided to the satisfaction of the patient/family/POA.
--- NOTE | 2023-12-03 07:13 | PM.HPGS ---
History of Present Illness History of Present Illness Consent: Risks, benefits, and alternatives have been discussed and questions answered. Patient agrees to proceed with procedure. Chief complaint: Neoplasm screening Narrative: Mindy Singh is a 48 year old female presents for screening colonoscopy. Patient's current weight appetite and bowel movements are normal. Patient denies abdominal pain. She has had no bleeding. Family history noncontributory. Patient has had low abdominal discomfort attributed to ovarian cyst. Review of Systems Review of Systems: All systems reviewed & are unremarkable except as noted in HPI and below PMFSH Past Medical History Medical History Anxiety GERD (gastroesophageal reflux disease) High cholesterol Hypoglycemia IBS (irritable bowel syndrome) CHARLIE (obstructive sleep apnea) CPAP Surgical History Surgical History H/O excision of mass lipoma removal from mid back H/O wrist surgery History of breast surgery History of cholecystectomy History of elbow surgery History of eye surgery History of shoulder surgery History of sinus surgery Family History Family History Unknown Breast cancer Carcinoma of colon Diabetes mellitus Grandparent Acute myocardial infarction Social History Social History Smoking packs per day: 1.5 Smoking cigarettes per day: 30.0 Years smoked: 24 Smoking pack-years: 36.00 Smoking status: Former smoker Tobacco type: cigarettes Smoking end date: 04/21/11 Additional smoking assessment comments: STOPPED IN 2014 Alcohol intake: current Drinks per week: 2 Alcohol use details: 2 per month Substance use type: does not use Living arrangements: with family Occupation/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 Spiritual care concerns: No Meds Home Medications and Allergies Home Medications Medication Instructions Recorded Confirmed Type esomeprazole magnesium 20 mg 40 mg PO HS 04/12/20 11/26/23 History capsule,delayed release (Nexium) gabapentin 300 mg capsule 600 mg PO BID 04/12/20 12/03/23 History modafinil 100 mg tablet (Provigil) 200 mg PO BID 04/12/20 11/26/23 History rizatriptan 10 mg tablet (Maxalt) 10 mg PO PRN PRN Migraine Headache 04/12/20 11/26/23 History escitalopram oxalate 20 mg tablet 20 mg PO HS 07/02/21 11/26/23 History omega-3 fatty acids-vitamin E 1 cap PO DAILY 09/16/23 11/26/23 History 1,000 mg capsule solriamfetol 150 mg tablet (Sunosi) 150 mg PO DAILY 09/16/23 11/26/23 History duloxetine 60 mg capsule,delayed 60 mg PO DAILY 11/26/23 12/03/23 History release sodium,potassium,mag sulfates 17.5 See Rx Instructions .Route 11/26/23 Rx gram-3.13 gram-1.6 gram oral soln .COMPLEX #354 mL (Suprep Bowel Prep Kit) tirzepatide 7.5 mg/0.5 mL 7.5 mg subcut WEEKLY 11/26/23 12/03/23 History subcutaneous pen injector (Mounjaro) Allergies Allergy/AdvReac Type Severity Reaction Status Date / Time hydrocodone [From Vicodin] Allergy Severe Hives Verified 12/03/23 06:36 sumatriptan [From Imitrex] Allergy Severe Dyspnea / Verified 12/03/23 06:36 SOB Exam Narrative: Physical exam reveals patient to be alert. Vital signs stable. HEENT exam is unremarkable. Patient is anicteric. Lungs are clear to auscultation and percussion heart is without murmur or extra sounds. Abdomen bowel sounds are present soft nontender with no organomegaly. Digital external rectal exam normal. Assessment and Plan Assessment and plan (1) Screen for colon cancer: Code(s): Z12.11 - Encounter for screening for malignant neoplasm of colon Status: Acute Assessment and Plan: Patient presents for screening colonoscopy. she appears
[2023-12-03] MEDS: LACTATED RINGERS 1,000 ML 150 ML IV CONT (07:19)
[2023-12-03 07:20] VITALS: BP 101/68; PULSE 80; RESP 18; TEMP 37.3; O2SAT 99
[2023-12-03 07:37] VITALS: BP 91/61; PULSE 81; RESP 14; O2SAT 99
[2023-12-03 07:47] VITALS: BP 85/67; PULSE 86; RESP 16; O2SAT 100
[2023-12-03 07:57] VITALS: BP 101/62; PULSE 82; RESP 16; O2SAT 100
--- NOTE | 2023-12-03 08:12 | WPDANESPN ---
Anes - Prog Note Post-Op Date/Time: 12/03/23 08:12 Cardiovascular status: normal Respiratory status: normal Airway patency: baseline Mental status: baseline Post-Op hydration status: normal Vital Signs: Last Vital Signs Temp 37.3 C 12/03/23 07:20 Pulse 82 12/03/23 07:57 Resp 16 12/03/23 07:57 BP 101/62 12/03/23 07:57 Pulse Ox 100 12/03/23 07:57 O2 Del Method Room Air 12/03/23 07:57 Pain Score (VAS): 0/10 I/O: Intake & Output 12/02/23 12/03/23 12/03/23 23:59 07:59 15:59 Intake Total 200 150 Balance 200 150 Patient Feedback: Patient satisfied with anesthetic care.
== END 2023-12-03 08:10 | disposition home or self-care (01) ==
PROVIDERS: PCP Family Medicine; Visit Provider Internal Medicine Gastroenterology
PROC: 0DJD8ZZ Inspection of Lower Intestinal Tract, Via Natural or Artificial Opening Endoscopic (ICD-10-PCS; CPT 45378; principal; 2023-12-03 07:30)
DX: Z12.11 Encounter for screening for malignant neoplasm of colon (principal); K64.8 Other hemorrhoids
CPT/HCPCS: 45378